=== PATIENT | female | born 1990 | race Caucasian/White ===

== ENCOUNTER 2019-04-22 16:46 | Emergency (ER) | payer MEDICAID ==
[2019-04-22 16:53] VITALS: BP 117/65; PULSE 78
--- NOTE | 2019-04-22 17:09 | EDM.PDOC ---
ED HPI GENERAL MEDICAL PROBLEM - General Chief Complaint: Laceration Stated Complaint: right hand injury, fall Time Seen by Provider: 04/22/19 16:55 Source of Information: Reports: Patient, Family (Mother), Old Records ([facility] EMR only. Hospital chart not available.) - History of Present Illness INITIAL COMMENTS - FREE TEXT/NARRATIVE: The patient was brought to the emergency room via the private automobile by her mother for evaluation of superficial lacerations on her right hand after she [place] the [place] [facility] [place] at about 16:15 hours. She landed on her outstretched hands and knees with mild 3/10 right hand pain secondary to her lacerations. The lacerations were washed out prior to arrival, however no other medications to this point. She denies any wrist pain, neck pain, back pain, significant knee pain, etc. with no history of head injury, loss of consciousness, paresthesias, change in mental status, neurological deficits, or other complaints or injuries. No recent history of abdominal pain, heartburn, nausea, diarrhea, melena, gross hematochezia, or any food intolerance, including fatty foods, etc.. The patient also denies any recent fever, cough, wheezing, dyspnea, etc.. Onset: Today, Sudden Onset Date: 04/22/19 Onset Time: 16:15 Duration: Constant Location: Reports: Upper Extremity, Right. Denies: Head, Face, Neck, Chest, Abdomen, Back, Pelvis, Upper Extremity, Left, Lower Extremity, Left, Lower Extremity, Right, Radiates to Quality: Reports: Ache, Same as Previous Episode Severity: Mild Improves with: Reports: None Worsens with: Reports: None Context: Reports: Trauma (As above). Denies: Sick Contact Associated Symptoms: Denies: Confusion, Chest Pain, Cough, Diaphoresis, Fever/ Chills, Headaches, Loss of Appetite, Nausea/Vomiting, Seizure, Shortness of Breath, Syncope, Weakness Treatments RUBY [employer] RA[employer]S CONSULTANT: Reports: Dressing(s) (As above) Right Hand Pain Score (Numeric/FACES): 3 - Related Data Allergies Allergy/AdvReac Type Severity Reaction Status Date / Time No Known Allergies Allergy Verified 04/22/19 16:48 Home Meds: Home Meds Levothyroxine 75 mcg PO DAILY 04/22/19 [History] medroxyPROGESTERone [Depo-Provera Contraceptive] 1 dose SUBCUT ASDIRECTED [History] Past Medical History HEENT History: Reports: Otitis Media, Other (See Below) Other HEENT History: 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 Denies: Arrhythmia, Heart Murmur, Hypertension Neurological History: Reports: Other (See Below) Other Neuro History: Down's syndrome with atlantooccipital instability. Other Psychiatric History: Down Syndrome Endocrine/Metabolic History: Reports: Hypothyroidism, Multinodular Thyroid, Other (See Below) Other Endocrine/Metabolic History: Benign thyroid nodules by follow-up ultrasounds as below. - Past Surgical History Head Surgeries/Procedures: Reports: None HEENT Surgical History: Reports: Eye Surgery, Myringotomy w Tube(s), Oral Surgery, Other (See Below) Other HEENT Surgeries/Procedures: Bilateral PE tubes at age 2. Bilateral strabismus convergence repair at age 2. Multiple dental surgery secondary to dental malformation from her Down's syndrome. Neurological Surgical History: Reports: Other (See Below) Other Neurological Surgeries/Procedures: Atlantooccipital fusion at age 7. 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 ED EXAM, SKIN/RASH Exam: See Below Exam Limited By: No Limitations General Appearance: Alert, WD/WN, No Apparent Distress Head: Atraumatic, Normocephalic Neck: Normal Inspection, Supple, Non-Tender, Full Range of Motion. No: Lymphadenopathy (L), Lymphadenopathy (R), Thyromegaly Respiratory/Chest: No Respiratory Distress, Lungs Clear, Normal Breath Sounds, No Accessory Muscle Use, Chest Non-Tender. No: Pleural Rub, Retractions Cardiovascular: Normal Peripheral Pulses, Regular Rate, Rhythm, No Edema, No Gallop, No JVD, No Murmur, No Rub. No: Gallop/S3, Gallop/S4, Friction Rub Peripheral Pulses: 2+: Radial (L), Radial (R) GI/Abdominal: Normal Bowel Sounds, Soft, Non-Tender, No Organomegaly, No Distention, No Abnormal Bruit, No Mass, Pelvis Stable. No: Guarding (Female) Exam: Deferred Rectal (Female) Exam: Deferred Back Exam: Normal Inspection, Full Range of Motion. No: CVA Tenderness (L), CVA Tenderness (R), Muscle Spasm Extremities: Normal Range of Motion, No Pedal Edema, Normal Capillary Refill, Other (Superficial 1 cm and 1.5 cm lacerations over the thenar chain of the right hand with no evidence of foreign body). No: Non-Tender (No laceration site tenderness with no snuffbox tenderness, wrist pain, hand pain, etc.. No evidence of fracture, deformity, etc.) Neurological: Alert, Oriented, CN II-XII Intact, Normal Cognition, Normal Gait, Normal Reflexes, No Motor/Sensory Deficits, Other (Stable mental status secondary to Down's syndrome per mother) Skin: Wound/Incision (Above) Location, Skin: Upper Extremity, Right Characteristics: Linear Associated features: Tenderness (Minimal). No: Swelling Lymphatic: No Adenopathy Course - Vital Signs Last Recorded V/S: Last Vital Signs Temp 36.7 C 04/22/19 16:51 Pulse 78 04/22/19 16:51 Resp 16 04/22/19 16:51 BP 117/65 04/22/19 16:51 Pulse Ox 99 04/22/19 16:51 Vital Signs - 24 hr 04/22/19 16:51 Temperature [ 36.7 C Temporal] Pulse, 78 Peripheral [ Left Pulse Oximetry] Respiratory 16 Rate Blood Pressure 117/65 [Left Upper Arm ] O2 Sat by Pulse 99 Oximetry - Orders/Labs/Meds Orders: Active Orders 24 hr Category Date Time Status Obtain Past Medical Record [OM.PC] Routine Oth 04/22/19 17:14 Active Labs: None Meds: Medications Discontinued Medications Generic Name Dose Route Start Last Admin Trade Name Freq PRN Reason Stop Dose Admin Neomycin/Polymyxin/Bacitracin 1 each 04/22/19 17:14 Triple Antibiotic Oint TOP 04/22/19 17:15 ONETIME ONE - Radiology Interpretation Free Text/Narrative:: None. Departure - Departure Time of Disposition: 17:35 Disposition: Home, Self-Care 01 Condition: Good Clinical Impression: Laceration, Down syndrome, Hypothyroidism (acquired) - Discharge Information *PRESCRIPTION DRUG MONITORING PROGRAM REVIEWED*: Not Applicable *COPY OF PRESCRIPTION DRUG MONITORING REPORT IN PATIENT SARAN: Not Applicable Instructions: Laceration Care, Adult, [id number] Referrals: Janina Mcgee PA-C [Primary Care Provider] - Forms: ED Department Discharge Additional Instructions: 1. Follow up with your regular provider in 10-14 days as needed, if symptoms persist. Bring these discharge instructions with you to that visit.. 2. Tylenol 650 mg by mouth every 4 hours and/or OTC ibuprofen 2-3 tabs by mouth every 6 hours with food as directed./needed. You may stagger these medications for 48-72 hours only, which essentially means that you are receiving a pain medication about every 2 hours. 3. Antibacterial soap wash/soak with subsequent antibacterial dressing such as Neosporin, etc. as directed 2 times per day until the wound or laceration site completely heals. Keep the area clean and dry with activity restrictions as discussed. Never use hydrogen peroxide for wound care. 4. Immediately after this visit verify that your cellular telephone's voicemail has been activated and is empty. Also verify that your home telephone 's answering machine is operating properly and has space to receive messages. Note that it is sometimes necessary for us to be able to contact you at a later date to discuss your medical care. 5. Please remember that we are ALWAYS here for you and want to answer any questions you may have. Feel free to call the hospital any time and we call you back ANAID. Sepsis Event Note - Evaluation Sepsis Screening Result: No Definite Risk - Focused Exam Vital Signs: Vital Signs Temp Pulse Resp BP Pulse Ox 04/22/19 16:51 36.7 C 78 16 117/65 99 Date Exam was Performed: 04/22/19 Time Exam was Performed: 17:30 - Problem List & Annotations (1) Laceration SNOMED Code(s): 300120681 Code(s): SHR6841 - Status: Acute Priority: High Current Visit: Yes Onset Date: 04/22/19 Annotation/Comment:: Lacerations not requiring surgical repair. Wound care and activity restrictions were discussed. TDAP is up-to- date and last given on 06/17/2012, which was confirmed by the emergency room nurse through [facility]. (2) Down syndrome SNOMED Code(s): 27385662 Code(s): Q90.9 - DOWN SYNDROME, UNSPECIFIED Status: Chronic Priority: Medium Current Visit: Yes Annotation/Comment:: Stable by history (3) Hypothyroidism (acquired) SNOMED Code(s): 605547523 Code(s): E03.9 - HYPOTHYROIDISM, UNSPECIFIED Status: Chronic Priority: Medium Current Visit: Yes Annotation/Comment:: Under therapy. Note stable thyroid nodules by ultrasound as above. - Problem List Review Problem List Initiated/Reviewed/Updated: Yes - My Orders Last 24 Hours: My Active Orders 04/22/19 17:14 Obtain Past Medical Record [OM.PC] Routine - Assessment/Plan Last 24 Hours: My Active Orders 04/22/19 17:14 Obtain Past Medical Record [OM.PC] Routine Assessment:: As above Plan: As above. Extensive precautions were given to the patient and her mother, who are in agreement with the treatment plan. See Patient Instructions for further treatment and plan.
[2019-04-22] MEDS: Bacitracin/Neomycin/Polymyxin B Oint 0.9 GM U/D Packet TOP ONE (17:25)
== END 2019-04-22 17:35 | disposition home or self-care (01) ==
LOC: LL.ED 16:46
DX: S61.411A Laceration without foreign body of right hand, initial encounter (principal); E03.9 Hypothyroidism, unspecified; Q90.9 Down syndrome, unspecified; Z79.899 Other long term (current) drug therapy; W00.0XXA Fall on same level due to ice and snow, initial encounter; Y99.0 Civilian activity done for income or pay
CPT/HCPCS: 99282

== ENCOUNTER 2021-02-18 19:20 | Emergency (ER) | payer MEDICAID ==
[2021-02-18] MEDS ORDERED: HYDROmorphone 1 MG/ML Syringe IM ONE (19:29)
[2021-02-18 19:34] VITALS: BP 128/70; PULSE 50
--- NOTE | 2021-02-18 20:11 | EDM.PDOC ---
ED HPI GENERAL MEDICAL PROBLEM - General Chief Complaint: Lower Extremity Injury/Pain Stated Complaint: knee pain Time Seen by Provider: 02/18/21 19:30 Source of Information: Reports: Patient, Family History Limitations: Reports: Other (poor historian due to downs syndrome) - History of Present Illness INITIAL COMMENTS - FREE TEXT/NARRATIVE: Patient presents with her mother. Apparently earlier today she twisted her knee somehow and it has been hurting. Took some tylenol earlier today and it didn't help. managed to walk on it but tonight it was hurting more so they came in for evaluation. Did not fall, has been walking on it. no previous injury adn pain is mainly at the patellar tendon area,. Onset: Today Duration: Hour(s):, Getting Worse Location: Reports: Lower Extremity, Left Worsens with: Reports: Movement Treatments WARE TESTER: Reports: Acetaminophen, Cold Therapy Left Knee Pain Score (Numeric/FACES): 10 - Related Data Allergies Allergy/AdvReac Type Severity Reaction Status Date / Time No Known Allergies Allergy Verified 04/22/19 16:48 Home Meds: Home Meds Levothyroxine 75 mcg PO DAILY 04/22/19 [History] medroxyPROGESTERone [Depo-Provera Contraceptive] 1 dose SUBCUT ASDIRECTED 04/22/19 [History] Past Medical History HEENT History: Reports: Otitis Media, Other (See Below) Other HEENT History: 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 Other Psychiatric History: Down Syndrome Endocrine/Metabolic History: Reports: Hypothyroidism, Multinodular Thyroid, Other (See Below) Other Endocrine/Metabolic History: Benign thyroid nodules by follow-up ultrasounds as below. - Infectious Disease History Infectious Disease History: Reports: None - Past Surgical History Head Surgeries/Procedures: Reports: None HEENT Surgical History: Reports: Eye Surgery, Myringotomy w Tube(s), Oral Surgery, Other (See Below) Other HEENT Surgeries/Procedures: Bilateral PE tubes at age 2. Bilateral strabismus convergence repair at age 2. Multiple dental surgery secondary to dental malformation from her Down's syndrome. Neurological Surgical History: Reports: Other (See Below) Other Neurological Surgeries/Procedures: Atlantooccipital fusion at age 7. 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[employer].) Review of Systems - Review of Systems Review Of Systems: See Below Constitutional: Reports: No Symptoms Eyes: Reports: No Symptoms Ears: Reports: No Symptoms Nose: Reports: No Symptoms Mouth/Throat: Reports: No Symptoms Respiratory: Reports: No Symptoms Cardiovascular: Reports: No Symptoms GI/Abdominal: Reports: No Symptoms Genitourinary: Reports: No Symptoms Musculoskeletal: Reports: Joint Pain (left knee) ED EXAM, GENERAL - Physical Exam Exam: See Below Exam Limited By: No Limitations General Appearance: Alert, WD/WN, No Apparent Distress Eye Exam: Bilateral Eye: EOMI, PERRL Ears: Normal External Exam Nose: Normal Inspection, Normal Mucosa Throat/Mouth: Normal Lips, Normal Teeth, Normal Voice, No Airway Compromise Head: Atraumatic Neck: Normal Inspection Respiratory/Chest: No Respiratory Distress, Lungs Clear, Normal Breath Sounds Cardiovascular: Regular Rate, Rhythm, No Edema Extremities: Other (left knee with minimal flexion due to patient discomfort, mild swelling at the patellar tendon are. no pain to palpation of the patella. full extension. Good distal pulses. Will not tolerate ligamentous exam. ) Neurological: Alert, Oriented Course - Vital Signs Last Recorded V/S: Last Vital Signs Temp 36.4 C 02/18/21 19:33 Pulse 50 L 02/18/21 19:33 Resp 20 02/18/21 19:33 BP 128/70 02/18/21 19:33 Pulse Ox 100 02/18/21 19:33 - Orders/Labs/Meds Orders: Active Orders 24 hr Category Date Time Status Knee 1V or 2V Rt [CR] Stat Exams 02/18/21 19:29 Ordered Meds: Medications Discontinued Medications Generic Name Dose Route Start Last Admin Trade Name Freq PRN Reason Stop Dose Admin Hydromorphone HCl 1 mg 02/18/21 19:29 02/18/21 19:37 Hydromorphone 1 Mg/Ml Syringe IM 02/18/21 19:30 1 mg ONETIME ONE Administration - Radiology Interpretation Free Text/Narrative:: negative 2 view left knee for acute bony abnormality, preliminary report only - Re-Assessments/Exams Free Text/Narrative Re-Assessment/Exam: 02/18/21 20:16 given shot of dilaudid, as does not want to walk or allow x-rays. did achieve x-ray, no fractures seen. Discussed RICE, offered crutches, initially refused, asked for at leaving. motrin every 6 hours. follow up with PCP. work note given Departure - Departure Time of Disposition: 20:06 Disposition: Home, Self-Care 01 Condition: Good Clinical Impression: Sprain of knee - Discharge Information *PRESCRIPTION DRUG MONITORING PROGRAM REVIEWED*: Not Applicable *COPY OF PRESCRIPTION DRUG MONITORING REPORT IN PATIENT SARAN: Not Applicable Instructions: Knee Sprain, Adult, RICE Therapy for Routine Care of Injuries, [id number] Referrals: Janina Mcgee PA-C [Primary Care Provider] - Forms: ED Department Discharge, ED Return to Work/School Form Additional Instructions: Ice the knee. Use an ludwin wrap if it helps. elevate the leg. Take 600 mg of motrin or ibuprofen every 6 hours for a couple of days. TRy not to limp due to pain and use a walker if necessary. follow up with PCP if not improving next week Sepsis Event Note (ED) - Evaluation Sepsis Screening Result: No Definite Risk - Focused Exam Vital Signs: Vital Signs Temp Pulse Resp BP Pulse Ox 02/18/21 19:33 36.4 C 50 L 20 128/70 100 - My Orders Last 24 Hours: My Active Orders 02/18/21 19:29 Knee 1V or 2V Rt [CR] Stat - Assessment/Plan Last 24 Hours: My Active Orders 02/18/21 19:29 Knee 1V or 2V Rt [CR] Stat
== END 2021-02-18 20:40 | disposition home or self-care (01) ==
LOC: LL.ED 19:20
DX: S83.92XA Sprain of unspecified site of left knee, initial encounter (principal); E03.9 Hypothyroidism, unspecified; Z79.899 Other long term (current) drug therapy; X50.1XXA Overexertion from prolonged static or awkward postures, initial encounter
CPT/HCPCS: 73560; 96372; 99283; J1170